=== PATIENT | male | born 1965 | race Two or more races ===

== ENCOUNTER 2019-04-06 14:07 | Outpatient (CLI) | payer OTHER | END 2019-04-06 16:42 | disposition home or self-care (01) | LOC: MRI 14:07 | DX: M75.81 Other shoulder lesions, right shoulder (principal); M54.2 Cervicalgia; M54.6 Pain in thoracic spine; M54.5 Low back pain | CPT/HCPCS: 73218 ==

== ENCOUNTER 2021-02-27 08:54 | Outpatient (CLI) | payer OTHER | END 2021-02-27 09:05 | disposition home or self-care (01) | LOC: MRI 08:54 | DX: G93.89 Other specified disorders of brain (principal); I63.89 Other cerebral infarction; R42 Dizziness and giddiness | CPT/HCPCS: 70551 ==